=== PATIENT | male | born 1940 | race Caucasian/White ===

== ENCOUNTER 2023-04-05 07:54 | Day surgery (SDC) | payer OTHER ==
[2023-04-01 11:25] LABS: Absolute Lymphocytes (CBC) 1.3 K/uL (0.7-4.9); Hematocrit 41.4 % (39.6-49.0); Lymphocytes % 14.7 % (15.3-44.8); MCV 93.2 fL (80-100); MPV 8.7 fL (7.6-11.3); Platelets 233 thou/uL (152-406); RBC Red Blood Cell Count 4.45 M/uL (4.33-5.43)
[2023-04-01 11:55] LABS: Potassium 4.7 mEq/L (3.5-5.1)
--- NOTE | 2023-04-01 12:26 | RAD REPORT ---
EXAM DESCRIPTION: Julian Zamudio And Belinda (2 Views)04/01/2023 11:26 am CLINICAL HISTORY: Preop for hernia repair. Hypertension COMPARISON: 2019 FINDINGS: Mild chronic interstitial lung opacities left lung base Lungs appear clear of acute infiltrate. Heart is normal size IMPRESSION: No acute abnormalities displayed
--- NOTE | 2023-04-01 15:05 | EKG ---
Test Date: 2023-04-01 Test Time: 11:10:17 Funeral Professional: MILY MEASUREMENT RESULTS: Intervals: Rate: 64 ME: 142 QRSD: 84 QT: 370 QTc: 381 [place]: P: 15 ME: 142 QRS: 61 T: -24 INTERPRETIVE STATEMENTS: Normal sinus rhythm ST & T wave abnormality, consider inferior ischemia Abnormal ECG No previous ECG available for comparison Electronically Signed On 04-01-23 15:04:29 CDT by Asim Jackson
[2023-04-05] MEDS: BUPIVACAINE 0.5% PF 10 ML VIAL ONE ×3 (08:14→09:30)
[2023-04-05] MEDS: CEFAZOLIN SODIUM 2 GM/VIAL ONE ×2 (08:14→09:10)
[2023-04-05] MEDS ORDERED: Ringers Lactate 1,000 ML IV ONE (08:22)
[2023-04-05] MEDS ORDERED: FENTANYL CITR 100 MCG/2 ML ONE (09:06)
[2023-04-05] MEDS ORDERED: propofoL 200 MG/20 ML VIAL IV ONE (09:06)
[2023-04-05] MEDS ORDERED: LIDOCAINE 2% MPF 5 ML VIAL ONE (09:07)
[2023-04-05] MEDS ORDERED: ONDANSETRON 4 MG/2 ML VIAL ONE (09:08)
[2023-04-05] MEDS ORDERED: EPHEDRINE SULF 50 MG/ML VIAL ONE (09:40)
--- NOTE | 2023-04-05 09:48 | P.OP ---
Date of Service: 04/05/23 Preop diagnosis: Nonhealing umbilical wound Postop diagnosis: Same with mesh protruding Procedure performed: Exploration of umbilical wound and partial excision of protruding mesh Surgeon: Michael Parker MD Veneer Patcher: Hailee MUKHERJEE Estimated blood loss: Minimal Specimen: Nonhealing wound with mesh Findings: As above Anesthesia: General Complications: None Drains: None Fluids and blood products: Nonapplicable Disposition: Recovery room Operative note: Patient brought to the OR and placed in supine position. General anesthesia begun. Patient prepped and draped in the usual sterile fashion. Marcaine 0.5% infiltrated around this 1 cm nonhealing wound. There appeared to be a piece of mesh sticking out through the wound. There was some indurated tissue around the wound as well. A 3 x 1.5 cm incision was made around this wound. The piece of mesh was debrided down to the deep subcutaneous tissue and the wound was excised and sent to pathology. Furthermore as the mesh was debrided to give it a smooth edge. Wound irrigated and bleeding controlled cautery. Flaps created. 0 chromic used to approximate subcutaneous tissue. 5- 0 nylon used to close skin. Wound irrigated and bleeding controlled cautery. Sterile dressing applied. Patient awakened and taken recovery room in good general condition. CC: ERMA Oglesby
[2023-04-05] MEDS ORDERED: HYDROCODONE/APAP 7.5/325 MG TAB PO PRN (09:50)
[2023-04-05 09:55] VITALS: O2SAT 99
[2023-04-05 10:02] VITALS: TEMP 97.4
[2023-04-05 10:15] VITALS: BP 115/57
== END 2023-04-05 10:00 | disposition home or self-care (01) ==
LOC: OR 07:54
PROVIDERS: ATTEND Surgery
PROC: 0JC80ZZ Extirpation of Matter from Abdomen Subcutaneous Tissue and Fascia, Open Approach (ICD-10-PCS; principal; 2023-04-05 09:30)
DX: S31.105A Unspecified open wound of abdominal wall, periumbilic region without penetration into peritoneal cavity, initial encounter (principal); M79.5 Residual foreign body in soft tissue
CPT/HCPCS: 10120; 15002; 93005; 85025; 80048; 36415; 88304; 88311; 71046; J2704; J2001; J3010; J2405; J7120; 88302